=== PATIENT | male | born 1955 | race Caucasian/White ===

== ENCOUNTER 2020-12-25 19:10 | Emergency (ER) | payer OTHER, MEDICAID, SELFPAY ==
[~2020-12-25] VITALS: Ht 185.4 cm; Wt 110.2 kg
[2020-12-25 19:18] VITALS: BP_SYST 123
[2020-12-25] MEDS ORDERED: NACL 0.9% 1,000 ML IV ONE (20:30)
[2020-12-25 21:15] LABS: BASOPHILS % (AUTO) 0.4 % (0.0-2.0); EOSINOPHILS # (AUTO) 0.1 K/uL (0.0-0.4); HEMATOCRIT 36.8 % (36-54); HEMOGLOBIN 12.3 g/dL (14.0-18.0); LYMPHOCYTES # (AUTO) 0.5 K/uL (1.0-5.5); LYMPHOCYTES % (AUTO) 5.3 % (20.5-51.5); MEAN CORPUSCULAR HEMOGLOBIN 29 pg (27-31); MEAN CORPUSCULAR HGB CONC 33 % (32-36); MEAN CORPUSCULAR VOLUME 86 fL (79.0-98.0); MONOCYTES # (AUTO) 0.7 K/uL (0.0-1.0); MONOCYTES % (AUTO) 7.2 % (1.7-9.3); NEUTROPHILS % (AUTO) 86.1 % (40.0-70.0); PLATELET COUNT (AUTO) 253 K/uL (130-430); RED BLOOD CELL COUNT(AUTO) 4.29 MIL/uL (4.2-6.2); RED CELL DISTRIBUTION WIDTH 16.8 % (9.0-15.0); WHITE BLOOD COUNT (AUTO) 10.4 K/uL (4.8-10.8)
[2020-12-25 21:25] LABS: INR 1.1 (0.80-1.20)
[2020-12-25 21:32] LABS: CALCIUM 8.6 mg/dL (8.4-11.0); CREATININE 0.68 mg/dL (0.55-1.30); POTASSIUM 4.1 mmol/L (3.5-5.1)
[2020-12-25 21:38] LABS: ALBUMIN 1.9 g/dL (3.4-4.8); TOTAL BILIRUBIN 0.7 mg/dL (0.0-1.0)
[2020-12-25 23:13] LABS: PROTHROMBIN TIME 11.6 SECS (9.5-12.5)
[2020-12-26] MEDS ORDERED: methylPREDNISolone SOD SUCC/PF 62.5 MG/ML VIAL IVP ONE (00:15)
[2020-12-26] MEDS ORDERED: DIPHENHYDRAMINE INJ 50 MG/ML VIAL IVP ONE (00:15)
[2020-12-26 01:27] LABS: BILIRUBIN,URINE 1+ (NEGATIVE); CLARITY/URINE CLOUDY (CLEAR); COLOR,URINE YELLOW (YELLOW); GLUCOSE,URINE TRACE (NEGATIVE); KETONES,URINE 3+ (NEGATIVE); LEUKOCYTE ESTERASE ,URINE 2+ (NEGATIVE); NITRITE, URINE NEGATIVE (NEGATIVE); PH,URINE 5.5 (5.0-8.0); PROTEIN URINE 1+ (NEGATIVE)
[2020-12-26 01:32] LABS: BLOOD, URINE TRACE (NEGATIVE)
[2020-12-26] MEDS ORDERED: IOHEXOL 350 mgI/mL, 150 ML INFUS..BTL IV ONE (01:44)
[2020-12-26] MEDS ORDERED: FERR-31 PO (01:47)
[2020-12-26] MEDS ORDERED: CARB-290 PO (01:47)
[2020-12-26] MEDS ORDERED: GLIP10TA11 PO (01:47)
[2020-12-26] MEDS ORDERED: DOCU-144 PO (01:47)
[2020-12-26] MEDS ORDERED: LISI20TA30 PO (01:47)
[2020-12-26] MEDS ORDERED: AMLO10TA88 PO (01:47)
[2020-12-26] MEDS ORDERED: CALC-823 PO (01:47)
[2020-12-26] MEDS ORDERED: HYDR-4038 PO (01:47)
[2020-12-26] MEDS ORDERED: CHOL100L PO (01:47)
[2020-12-26] MEDS ORDERED: CLOP75TA32 PO (01:47)
[2020-12-26] MEDS ORDERED: TRAJENTA 5 MG PO (01:47)
[2020-12-26 02:48] LABS: BACTERIA,URINE MODERATE /HPF (None Seen); WBC,URINE 20-50 /HPF (0-3); YEAST,URINE Few /HPF (None Seen)
[2020-12-26] MEDS ORDERED: cefTRIAXone 1 GM in D5W 50 ML IV ONE (03:30)
[2020-12-26] MEDS ORDERED: IPRATROPIUM/ALBUTEROL SULFATE 3 ML AMPUL.NEB (DUONEB) INH ONE (03:30)
[2020-12-26] MEDS ORDERED: cefTRIAXone 1 GM VIAL ONE (03:31)
[2020-12-26] MEDS ORDERED: CEFU250T85 PO (03:39)
[2020-12-26] MEDS ORDERED: ALBMDI INH (03:39)
[2020-12-26 05:01] VITALS: BP_SYST 115
== END 2020-12-26 05:01 | disposition home or self-care (01) ==
LOC: SED 19:10
DX: J98.11 Atelectasis (principal); J18.9 Pneumonia, unspecified organism; N39.0 Urinary tract infection, site not specified; E11.65 Type 2 diabetes mellitus with hyperglycemia; I11.0 Hypertensive heart disease with heart failure; I50.9 Heart failure, unspecified; Z88.5 Allergy status to narcotic agent; Z91.040 Latex allergy status; Z88.8 Allergy status to other drugs, medicaments and biological substances; Z79.899 Other long term (current) drug therapy; Z20.822 Contact with and (suspected) exposure to COVID-19
CPT/HCPCS: 36415; 71045; 71275; 76376; 80053; 81000; 83880; 84484; 85025; 85379; 85610; 87086; 87426; 93005; 96361; 96365; 96375; 99285; J0696; J1200; J2930; J7030; Q9967; 94010; 94640